=== PATIENT | male | born 1945 | race Caucasian/White ===

== ENCOUNTER 2018-11-01 06:06 | Outpatient (CLI) | payer MEDICARE ==
[2018-11-01 07:10] LABS: #Basophils 0.1 thou/uL (0.0-0.2); #Eosinphils 0.3 thou/uL (0.0-0.7); #Lymphocytes 2.7 thou/uL (1.20-3.40); #Monocytes 0.7 thou/uL (0.11-0.59); #Neutrophils 3.7 thou/uL (1.40-6.50); %Basophils 1.4 % (0.0-1.0); %Eosinophils 4.4 % (0.0-10.0); %Lymphocytes 35.2 % (21.0-51.0); %Monocytes 9.7 % (0.0-10.0); %Neutrophils 49.3 % (42.0-75.0); Hemoglobin 13.8 g/dL (14.0-18.0); Mean Corpuscular HGB CONC 32.5 g/dL (32.0-36.0); Mean Corpuscular Hemoglobin 28.2 pg (27.0-31.0); Platelet Count 254 thou/uL (130-400); RBC Distribution Width 12.5 % (11.5-14.5); Red Blood Cell (RBC) Count 4.89 mill/uL (4.70-6.10); White Blood Cell (WBC) Count 7.5 thou/uL (4.8-10.8)
[2018-11-01 07:25] LABS: ALT (SGPT) 12 U/L (8-55); AST (SGOT) 15 U/L (5-34); Albumin 3.8 g/dL (3.4-4.8); Alkaline Phosphatase 73 U/L (40-150); Anion Gap 12 mmol/L (10-20); BUN (Urea Nitrogen) 15 mg/dL (8.4-25.7); Bilirubin, Total 0.6 mg/dL (0.2-1.2); Calc. Creatinine Clearance 0 mL/min (70-130); Calcium 9.6 mg/dL (7.8-10.44); Carbon Dioxide 27 mmol/L (23-31); Cardiac Risk 4.8 (Less than 4.5); Chloride 106 mmol/L (98-107); Cholesterol 234 mg/dl (< 200 Desired); Estimated GFR-MDRD 85; Globulin 2.8 g/dL (2.4-3.5); Glucose 96 mg/dL (83-110); HDL Cholesterol 49 mg/dL (>60 Neg Risk); LDL Cholesterol, Calculated 159 mg/dL; Potassium 4.6 mmol/L (3.5-5.1); Protein, Total 6.6 g/dL (5.8-8.1); Sodium 140 mmol/L (136-145)
[2018-11-01 07:38] LABS: Thyroid Stimulating Hormone 4.2675 uIU/mL (0.35-4.94)
[2018-11-01 08:05] LABS: Triglycerides 130 mg/dL (Less than 150)
[2018-11-01 10:46] LABS: Vitamin D, 25 Hydroxy 25.2 ng/ml (> 30.0)
== END 2018-11-01 06:07 | disposition home or self-care (01) ==
LOC: SCSLAB 06:06
PROVIDERS: ATTEND Internal Medicine Geriatric Medicine
DX: Z13.6 Encounter for screening for cardiovascular disorders (principal); E78.00 Pure hypercholesterolemia, unspecified; E55.9 Vitamin D deficiency, unspecified; E53.8 Deficiency of other specified B group vitamins
CPT/HCPCS: 36415; 80053; 80061; 82306; 82607; 84443; 85025

== ENCOUNTER 2018-12-21 07:56 | Outpatient (CLI) | payer MEDICARE ==
--- NOTE | 2018-12-21 08:14 | ULT ---
US Abdominal Aorta Aneurysm History: Abdominal or aortic aneurysm screening Comparison: None. Findings: Real-time grayscale, color, and spectral analysis of the abdominal aorta and proximal iliac vessels was obtained. No aneurysmal dilatation of the aorta. Proximal aorta measures 2.1 cm. Mid aorta measures up to 1.7 c m. Distal aorta measures up to 1.4 cm. No aneurysmal dilatation of the iliac vessels. Impression: No abdominal aortic aneurysm. Moderate atherosclerotic plaque.
== END 2018-12-21 07:57 | disposition home or self-care (01) ==
LOC: SCSULT 07:56
PROVIDERS: ATTEND Internal Medicine Geriatric Medicine
DX: Z13.6 Encounter for screening for cardiovascular disorders (principal); I70.90 Unspecified atherosclerosis
CPT/HCPCS: 76706